=== PATIENT | female | born 1980 | race Caucasian/White ===

== ENCOUNTER 2016-11-11 18:29 | Emergency (ER) | payer OTHER ==
[~2016-11-11] VITALS: Ht 152.4 cm; Wt 93.4 kg
[2016-11-11 18:36] VITALS: BP 153/99
== END 2016-11-11 20:01 | disposition home or self-care (01) ==
LOC: ED 18:29
DX: M79.674 Pain in right toe(s) (principal); R03.0 Elevated blood-pressure reading, without diagnosis of hypertension; Z88.1 Allergy status to other antibiotic agents
CPT/HCPCS: J1885

== ENCOUNTER 2020-02-04 12:01 | Emergency (ER) | payer OTHER ==
[~2020-02-04] VITALS: Ht 152.4 cm; Wt 86.6 kg
[2020-02-04 13:13] VITALS: BP 182/99; Ht 152.4 cm; Wt 86.6 kg
== END 2020-02-04 14:35 | disposition home or self-care (01) ==
LOC: ED 12:01
DX: S61.211A Laceration without foreign body of left index finger without damage to nail, initial encounter (principal); W26.8XXA Contact with other sharp object(s), not elsewhere classified, initial encounter; Y93.89 Activity, other specified; Y92.89 Other specified places as the place of occurrence of the external cause; Y99.8 Other external cause status
CPT/HCPCS: 90715

== ENCOUNTER 2020-02-06 09:52 | Emergency (ER) | payer MEDICAID ==
[~2020-02-06] VITALS: Ht 154.9 cm; Wt 88.0 kg
[2020-02-06 10:08] VITALS: Ht 154.9 cm; Wt 88.0 kg
[2020-02-06 10:47] VITALS: BP 162/97
== END 2020-02-06 10:47 | disposition home or self-care (01) ==
LOC: ED 09:52
DX: S61.211D Laceration without foreign body of left index finger without damage to nail, subsequent encounter (principal); X58.XXXD Exposure to other specified factors, subsequent encounter